=== PATIENT | male | born 1945 | race Caucasian/White ===

== ENCOUNTER 2019-03-21 14:18 | Emergency (ER) | payer MEDICARE, OTHER ==
--- NOTE | 2019-03-21 15:53 | ER Document Report ---
ED Medical Screen (RME) - General Chief Complaint: Leg Swelling Stated Complaint: LEFT LEG SWELLING Time Seen by Provider: 03/21/19 15:46 Mode of Arrival: Ambulatory Information source: Patient Notes: Patient presents emergency department with complaints of left foot and ankle pain. Patient reports on Tuesday his foot became red and swollen he was evaluated by Dr. Livingston a [facility] medical inpatient services. He was told that he had 2 broken toes. Patient does not remember hurting his foot. He asked Dr. Livingston if it was old break or a new break and was told he couldn't tell. The foot was wrapped. Patient he was treated with doxycycline for cellulitis. Patient presents today because he still having shooting pains in the foot was evaluated by his primary care provider on Tuesday.. He reports the erythema is not worse. He just feels like he should be feeling better. Denies fever vomiting diarrhea. Patient is a diabetic. I have greeted and performed a rapid initial assessment of this patient. A comprehensive ED assessment and evaluation of the patient, analysis of test results and completion of the medical decision making process will be conducted by additional ED providers. Dictation of this chart was performed using voice recognition software; therefore, there may be some unintended grammatical errors. TRAVEL OUTSIDE OF THE [place] IN LAST 30 DAYS: No - Related Data Allergies/Adverse Reactions: cephalexin monohydrate [From Keflex] Allergy (Verified 03/21/19 14:19) Hives Past Medical History - Past Medical History Cardiac Medical History: Reports: Hx Hypercholesterolemia, Hx Hypertension Pulmonary Medical History: Reports: Hx Pneumonia Neurological Medical History: Reports: Hx Cerebrovascular Accident Endocrine Medical History: Reports: Hx Diabetes Mellitus Type 2 GI Medical History: Reports: Hx Gastroesophageal Reflux Disease Musculoskeltal Medical History: Reports Hx Musculoskeletal Deformity - degenerative joint and neuropathy Psychiatric Medical History: Reports: Hx Anxiety, Hx Depression Past Surgical History: Reports: Hx Oral Surgery, Hx Orthopedic Surgery - L elbow surgery, Hx Tonsillectomy - Immunizations Hx Diphtheria, Pertussis, Tetanus Vaccination: No Physical Exam - Vital signs Vitals: Temp Pulse Resp BP Pulse Ox 97.7 F 87 18 130/59 H 95 03/21/19 14:26 03/21/19 14:26 03/21/19 14:26 03/21/19 14:26 03/21/19 14:26 Course - Vital Signs Vital signs: Temp Pulse Resp BP Pulse Ox 97.7 F 87 18 130/59 H 95 03/21/19 14:26 03/21/19 14:26 03/21/19 14:26 03/21/19 14:26 03/21/19 14:26
--- NOTE | 2019-03-21 16:39 | RADIOLOGY REPORT (SQ) ---
EXAM DESCRIPTION: FOOT LEFT COMPLETE COMPLETED DATE/TIME: 03/21/2019 4:21 pm REASON FOR STUDY: pain, swelling, cellulitis COMPARISON: 03/25/2016 NUMBER OF VIEWS: Three views. TECHNIQUE: AP, lateral and oblique radiographic images acquired of the left foot. LIMITATIONS: None. FINDINGS: MINERALIZATION: Normal. BONES: Old healed fractures for the 5th metatarsals. Oblique slightly displaced fracture midshaft of the proximal phalanx of the 2nd toe -age indeterminate. Transverse radiolucent defect through the h ead of the 3rd metatarsal of. Probably chronic was not present on the previous study of 03/25/2016. JOINTS: No effusions. SOFT TISSUES: No soft tissue swelling. No foreign body. OTHER: No other significant finding. IMPRESSION: Old healed fractures 4th and 5th metatarsals. Oblique displaced fracture proximal phal anx of the 2nd toe and transverse fracture through the head of the 3rd metatarsal. . May be old bas ed on radiographic appearance but not present on the older study. . TECHNICAL DOCUMENTATION: JOB ID: [id number] [employer]- All Rights Reserved Reading location - IP/workstation name: [email or web address]
[2019-03-21 16:51] LABS: ABSOLUTE BASOPHILS # (AUTO) 0.1 10^3/uL (0.0-0.2); ABSOLUTE EOSINOPHILS # (AUTO) 0.3 10^3/uL (0.0-0.6); ABSOLUTE LYMPHOCYTES (AUTO) 1.9 10^3/uL (0.5-4.7); ABSOLUTE MONOCYTES (AUTO) 0.8 10^3/uL (0.1-1.4); BASOPHILS % (AUTO) 0.7 % (0-2); EOSINOPHILS % (AUTO) 3.3 % (0-6); HEMATOCRIT 42.3 % (37.9-51.0); HEMOGLOBIN 14.2 g/dL (13.5-17.0); LYMPHOCYTES % (AUTO) 24.4 % (13-45); MEAN CORPUSCULAR HEMOGLOBIN 31.8 pg (27.0-33.4); MEAN CORPUSCULAR HGB CONC 33.6 g/dL (32.0-36.0); MEAN CORPUSCULAR VOLUME 95 fl (80-97); MONOCYTES % (AUTO) 9.4 % (3-13); PLATELET COUNT 320 10^3/uL (150-450); RED BLOOD COUNT 4.48 10^6/uL (4.35-5.55); RED CELL DISTRIBUTION WIDTH 14.2 % (11.5-14.0); SEGMENTED NEUTROPHILS % (AUTO) 62.2 % (42-78); TOTAL CELLS COUNTED % (AUTO) 100 %
[2019-03-21 17:21] LABS: ALANINE AMINOTRANSFERASE 28 U/L (21-72); ALBUMIN 3.9 g/dL (3.5-5.0); ALKALINE PHOSPHATASE 58 U/L (38-126); ANION GAP 10 (5-19); ASPARTATE AMINO TRANSFERASE 22 U/L (17-59); BILIRUBIN,DIRECT 0.3 mg/dL (0.0-0.4); BILIRUBIN,TOTAL 0.4 mg/dL (0.2-1.3); BLOOD UREA NITROGEN 18 mg/dL (7-20); CALCIUM 9.8 mg/dL (8.4-10.2); CARBON DIOXIDE 32 mmol/L (22-30); CHLORIDE 101 mmol/L (98-107); GLUCOSE 161 mg/dL (75-110); POTASSIUM 5.2 mmol/L (3.6-5.0); SODIUM 142.6 mmol/L (137-145); TOTAL PROTEIN 6.9 g/dL (6.3-8.2)
--- NOTE | 2019-03-21 19:01 | ER Document Report ---
ED General - General Chief Complaint: Leg Swelling Stated Complaint: LEFT LEG SWELLING Time Seen by Provider: 03/21/19 15:46 Primary Care Provider: GERMÁN ENNIS MD [Primary Care Provider] - Follow up as needed Mode of Arrival: Ambulatory Notes: Patient is a 73-year-old male with past medical history of diabetes, morbid obesity, presents with approximately 5 days of left lower semi-swelling and pain. Describes the pain as being gradual in onset, throbbing, constant mild to moderate in nature. Walking on the foot or touching the area worsens the pain. Nothing improves the pain. 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 The foot was wrapped in a subtotally followed up with his primary care physician who diagnosed this is also being a possible cellulitis and started him on doxycycline. He states this is provided no improvement in the swelling or redness. He denies fever or constitutional symptoms. No known injury to the foot but admits that he has severe peripheral neuropathy and cannot really feel the foot would not know whether or not he had injured it. He denies any history of similar symptoms in the past. No focal weakness or numbness. No history of DVT or pulmonary embolus. Swelling is unilateral in nature TRAVEL OUTSIDE OF THE [place] IN LAST 30 DAYS: No - Related Data Allergies/Adverse Reactions: cephalexin monohydrate [From Keflex] Allergy (Verified 03/21/19 14:19) Hives Past Medical History - General Information source: Patient - Social History Smoking Status: Former Smoker Frequency of alcohol use: None Drug Abuse: None Lives with: Spouse/Significant other Family History: Reviewed & Not Pertinent Patient has suicidal ideation: No Patient has homicidal ideation: No - Past Medical History Cardiac Medical History: Reports: Hx Hypercholesterolemia, Hx Hypertension Pulmonary Medical History: Reports: Hx Pneumonia Neurological Medical History: Reports: Hx Cerebrovascular Accident Endocrine Medical History: Reports: Hx Diabetes Mellitus Type 2 Renal/ Medical History: Denies: Hx Peritoneal Dialysis GI Medical History: Reports: Hx Gastroesophageal Reflux Disease Musculoskeletal Medical History: Reports Hx Musculoskeletal Deformity - degenerative joint and neuropathy Psychiatric Medical History: Reports: Hx Anxiety, Hx Depression Past Surgical History: Reports: Hx Oral Surgery, Hx Orthopedic Surgery - L elbow surgery, Hx Tonsillectomy - Immunizations Hx Diphtheria, Pertussis, Tetanus Vaccination: No Review of Systems - Review of Systems Notes: Constitutional: Negative for fever. HENT: Negative for sore throat. Eyes: Negative for visual changes. Cardiovascular: Negative for chest pain. Respiratory: Negative for shortness of breath. Gastrointestinal: Negative for abdominal pain, vomiting or diarrhea. Genitourinary: Negative for dysuria. Musculoskeletal: Positive for swelling and pain to the left foot Skin: Positive erythema to the distal left lower extremity and foot Neurological: Negative for headaches, weakness or numbness. 10 point ROS negative except as marked above and in HPI. Physical Exam - Vital signs Vitals: Temp Pulse Resp BP Pulse Ox 97.7 F 87 18 130/59 H 95 03/21/19 14:26 03/21/19 14:26 03/21/19 14:26 03/21/19 14:26 03/21/19 14:26 Interpretation: Normal Notes: PHYSICAL EXAMINATION: GENERAL: Well-appearing, well-nourished and in no acute distress. HEAD: Atraumatic, normocephalic. EYES: Pupils equal round and reactive to light, extraocular movements intact, sclera anicteric, conjunctiva are normal. ENT: nares patent, oropharynx clear without exudates. Moist mucous membranes. NECK: Normal range of motion, supple without lymphadenopathy LUNGS: Breath sounds clear to auscultation bilaterally and equal. No wheezes rales or rhonchi. HEART: Regular rate and rhythm without murmurs, 2+ DP pulses bilaterally ABDOMEN: Soft, nontender, normoactive bowel sounds. No guarding, no rebound. No masses appreciated. EXTREMITIES: Normal range of motion, is approximately 2+ pitting edema to the mid tibial level and below on the left, trace on right. There is notable erythema particularly over the dorsum of the left foot with a notable deformity of the second phalanx of the left foot. Mild pain on palpation of the mid area of the foot. There is no pain on palpitation of the popliteal fossa or calf. No skin streaking erythema. NEUROLOGICAL: No focal neurological deficits. Moves all extremities spontaneously and on command. PSYCH: Normal mood, normal affect. SKIN: Warm, Dry, normal turgor, erythema to the left foot as above Course - Re-evaluation Re-evalutation: 03/21/19 18:59 Presentation is most consistent with reactive edema and inflammation secondary to likely acute fractures of the second phalanx of the left foot as well as the third metatarsal seen on initial x-ray that were not present on previous x-rays. Patient is a diabetic with profound peripheral neuropathy and likely injured his foot at some time without realization of the injury. This is not consistent with a cellulitis and I do not believe he requires ongoing antibiotic treatment. Will obtain a venous Doppler to definitively exclude a DVT given the degree of edema although again this seems improbable given more probable history of fracture with associated edema. I have explained this to the patient and his were in agreement and comfortable with the plan of obtaining an ultrasound if this is negative will plan for discharge home 03/21/19 20:52 Doppler ultrasound negative for DVT. Patient has been placed in a short leg posterior splint and will follow-up with orthopedic surgery. Advised nonweightbearing status until evaluated by orthopedic surgery. At this time will discharge with return precautions and follow-up recommendations. Verbal discharge instructions given a the bedside and opportunity for questions given. Medication warnings reviewed. Patient is in agreement with this plan and has verbalized understanding of return precautions and the need for primary care fo llow-up in the next 24-72 hours. - Vital Signs Vital signs: Temp Pulse Resp BP Pulse Ox 97.7 F 87 18 130/59 H 95 03/21/19 14:26 03/21/19 14:26 03/21/19 14:26 03/21/19 14:26 03/21/19 14:26 - Laboratory Result Diagrams: 03/21/19 16:30 03/21/19 16:30 Laboratory results interpreted by me: 03/21/19 03/21/19 03/21/19 16:29 16:30 16:30 RDW 14.2 H Potassium 5.2 H Carbon Dioxide 32 H Glucose 161 H POC Glucose 144 H - Diagnostic Test Radiology reviewed: Image reviewed, Reports reviewed Discharge - Discharge Clinical Impression: Swelling of left foot Fracture of third metatarsal bone of left foot Qualifiers: Encounter type: subsequent encounter Fracture type: closed Fracture alignment: nondisplaced Fracture healing: with routine healing Qualified Code(s): S92.335D - Nondisplaced fracture of third metatarsal bone, left foot, subsequent encounter for fracture with routine healing Closed fracture of phalanx of left second toe Qualifiers: Encounter type: initial encounter Qualified Code(s): S92.502A - Displaced unspecified fracture of left lesser toe(s), initial encounter for closed fract ure Condition: Good Disposition: HOME, SELF-CARE Additional Instructions: The ultrasound of your leg does not show a blood clot. As we discussed there are several fractures in your left foot that likely account for the swelling and pain. You have been placed in a compression stocking to reduce the swelling as well as a splint to assist with stabilization of these fractures. Please use the crutches as provided. Please follow-up with orthopedic surgeon listed in the paperwork at your earliest ability. Referrals: GERMÁN ENNIS MD [Primary Care Provider] - Follow up as needed SANDEEP CAMARA MD [ACTIVE STAFF] - Follow up in 3-5 days
[2019-03-21 22:15] VITALS: BP 168/78
--- NOTE | 2019-03-22 09:15 | XCELERA REPORT ---
[address] [facility] [address] Lower Extremity Venous Evaluation Procedure: Color flow and duplex imaging of the veins of the left lower extremity as well as the right Common Femoral vein. Right Sided Venous Evaluation The right common femoral vein is fully compressible. Spontaneous and phasic flow is present in the right common femoral vein. Left Sided Venous Evaluation Normal vessel filling wall to wall, compression and augmentation as well as Colour flow down to the infrageniculate veins. Interpretation Summary No duplex evidence of DVT or obstruction in the left lower extremity nor in the right Common Femoral vein. Name: ANDREA ZELALEM R Age: 73 yrs Gender: Male : 1945 Patient Status: Emergency Patient Location: ER Study Date: 03/21/2019 07:13 PM Reason For Study: lle swelling, eval dvt Ordering Physician: JULEE SAUCEDA Performed By: Tamera Georges : JULEE SAUCEDA > Gerhard Campos
== END 2019-03-21 22:05 | disposition home or self-care (01) ==
LOC: ER 14:18
DX: S92.335D Nondisplaced fracture of third metatarsal bone, left foot, subsequent encounter for fracture with routine healing (principal); S92.502D Displaced unspecified fracture of left lesser toe(s), subsequent encounter for fracture with routine healing; M79.89 Other specified soft tissue disorders; M79.605 Pain in left leg; X58.XXXD Exposure to other specified factors, subsequent encounter; E11.9 Type 2 diabetes mellitus without complications; I10 Essential (primary) hypertension; Z87.891 Personal history of nicotine dependence
CPT/HCPCS: 36415; 80053; 82962; 85025; 93971; 99284